=== PATIENT | female | born 1980 | race Two or more races ===

== ENCOUNTER → 2021-09-18 | Outpatient (CLI) | payer OTHER | END | disposition home or self-care (01) | LOC: LAB 15:16 | PROVIDERS: ATTEND Nurse Practitioner | DX: Z01.84 Encounter for antibody response examination (principal); Z20.9 Contact with and (suspected) exposure to unspecified communicable disease | CPT/HCPCS: 36415; 86706; 86735; 86762; 86765; 86787 ==

== ENCOUNTER → 2022-10-09 | Outpatient (CLI) | payer OTHER | END | disposition home or self-care (01) | LOC: LAB 12:18 | PROVIDERS: ATTEND Nurse Practitioner Family | DX: Z01.84 Encounter for antibody response examination (principal) | CPT/HCPCS: 36415; 86706; 86735; 86762; 86765; 86787 ==

== ENCOUNTER → 2025-01-04 | Outpatient (CLI) | payer BC | END | disposition home or self-care (01) | LOC: LAB 12:35 | PROVIDERS: ATTEND Nurse Practitioner | DX: N39.0 Urinary tract infection, site not specified (principal) | CPT/HCPCS: 87086 ==

== ENCOUNTER → 2025-01-19 | Outpatient (CLI) | payer BC ==
[2025-01-19 11:58] LABS: Hematocrit 42.0 % (36.0-46.0); Hemoglobin 14.5 g/dL (12.2-16.2); Mean Corpuscular Hemoglobin 31.8 pg (28.0-32.0); Mean Corpuscular Volume 92.0 fL (80.0-100.0); Nucleated Red Blood Cells % 0.1 %
[2025-01-19 12:03] LABS: Urine Protein, UAD Negative (Negative)
[2025-01-19 13:32] LABS: Albumin 4.3 g/dL (3.2-4.8); Anion Gap 11 (5-15); BUN/Creatinine Ratio 10.0 (10.0-20.0); Calcium 9.4 mg/dL (8.7-10.4); Carbon Dioxide 25 mmol/L (20-31); Chloride 101 mmol/L (98-107); Free T4 (Free Thyroxine) 1.3 ng/dL (0.89-1.76); Potassium 3.9 mmol/L (3.5-5.1); Sodium 137 mmol/L (136-145); Total Protein 7.6 g/dL (5.7-8.2)
[2025-01-19 13:33] LABS: Bilirubin, Total 0.9 mg/dL (0.2-1.0)
[2025-01-19 13:44] LABS: Alanine Aminotransferase 80 U/L (7-40); Alkaline Phosphatase 155 U/L (46-116); Blood Urea Nitrogen 7 mg/dL (9-23); Glucose 206 mg/dL (74-106)
[2025-01-19 14:00] LABS: Cholesterol 165 mg/dL (< 200)
[2025-01-19 14:05] LABS: HDL Cholesterol 32 mg/dL (40-59); Triglycerides 209 mg/dL (< 150)
== END | disposition home or self-care (01) ==
LOC: LAB 11:34
PROVIDERS: ATTEND Internal Medicine
DX: R63.5 Abnormal weight gain (principal); Z00.00 Encounter for general adult medical examination without abnormal findings
CPT/HCPCS: 36415; 80053; 80061; 81001; 82607; 84439; 84443; 85025; 85652

== ENCOUNTER 2025-03-01 12:15 | Outpatient (CLI) | payer BC | END 2025-03-01 17:00 | disposition home or self-care (01) | LOC: LAB 12:15 | PROVIDERS: ATTEND Internal Medicine | DX: Z01.812 Encounter for preprocedural laboratory examination (principal); K83.8 Other specified diseases of biliary tract | CPT/HCPCS: 36415; 82565; 84520 ==